=== PATIENT | male | born 2000 | race American Indian/Alaskan Native ===

== ENCOUNTER 2021-03-28 09:40 | Emergency (ER) | payer OTHER ==
[2021-03-28] MEDS ORDERED: Ondansetron 4 MG/2 ML SDV IVPUSH ONE (10:08)
[2021-03-28] MEDS ORDERED: Sodium Chloride 0.9% 10 ML Syringe FLUSH PRN (10:08)
[2021-03-28] MEDS ORDERED: Sodium Chloride 0.9% 1,000 ML IV SCH (10:15)
== END 2021-03-28 12:01 | disposition home or self-care (01) ==
LOC: JD.ED 09:40
DX: U07.1 COVID-19 (principal); R11.2 Nausea with vomiting, unspecified
CPT/HCPCS: 36415; 80053; 83690; 85025; 96374; 99284; J2405; J7030; 99283

== ENCOUNTER 2024-01-10 22:07 | Emergency (ER) | payer OTHER ==
[2024-01-10] MEDS ORDERED: Sodium Chloride 0.9% 10 ML Syringe FLUSH PRN (22:29)
[2024-01-10 22:49] LABS: BASOPHILS ABSOLUTE AUTO 0.1 K/mm3 (0.0-0.2); BASOPHILS PERCENT AUTO 0.5 % (0.0-1.0); EOSINOPHILS ABSOLUTE AUTO 0.4 K/mm3 (0.0-0.4); EOSINOPHILS PERCENT AUTO 2.7 % (0.0-6.0); HEMATOCRIT 47.6 % (42.0-52.0); HEMOGLOBIN 15.9 gm/dl (14.0-18.0); IMMATURE GRAN ABSOLUTE AUTO 0.06 K/mm3 (0.00-0.05); IMMATURE GRAN PERCENT AUTO 0.4 % (0.0-0.4); LYMPHOCYTES ABSOLUTE AUTO 3.2 K/mm3 (1.0-4.8); LYMPHOCYTES PERCENT AUTO 22.4 % (24.0-44.0); MEAN CORPUSCULAR HEMOGLOBIN 27.9 pg (28.0-32.0); MEAN CORPUSCULAR HGB CONC 33.4 g/dl (32.0-36.0); MEAN CORPUSCULAR VOLUME 83.7 fl (83.0-99.0); MEAN PLATELET VOLUME 11.3 fl (9.4-12.4); MONOCYTES ABSOLUTE AUTO 0.6 K/mm3 (0.0-0.8); MONOCYTES PERCENT AUTO 4.5 % (0.0-8.0); NEUTROPHILS ABSOLUTE AUTO 9.9 K/mm3 (1.8-7.7); NEUTROPHILS PERCENT AUTO 69.5 % (41.0-71.0); PLATELET COUNT,PLT 309 K/mm3 (150-400); RED BLOOD CELL COUNT 5.69 M/mm3 (4.52-5.90)
[2024-01-10 22:52] LABS: A/G RATIO 0.9 (1-2); BILIRUBIN TOTAL 0.5 mg/dL (0.2-1.0); CALCIUM 9.5 mg/dL (8.5-10.1); EST CRCL DRUG DOSING (CG) 128.73 mL/min; PROTEIN TOTAL,TP 8.3 g/dl (6.4-8.2)
[2024-01-10 22:54] LABS: LACTIC ACID 1.1 mmol/L (0.4-2.0)
[2024-01-10] MEDS: Iopamidol 612 MG/ML 100 ML Bottle IVPUSH ONE (23:13)
[2024-01-10] MEDS: Ketorolac 30 MG/ML SDV IVPUSH ONE (23:52)
== END 2024-01-11 00:02 | disposition home or self-care (01) ==
LOC: JD.ED 22:07
DX: R10.11 Right upper quadrant pain (principal)
CPT/HCPCS: 36415; 74177; 80053; 83605; 83690; 83735; 85025; 96374; 99285; J1885; Q9967

== ENCOUNTER 2024-01-13 10:24 | Emergency (ER) | payer OTHER ==
[2024-01-13 11:12] LABS: APPEARANCE,URINE CLEAR (Clear); BILIRUBIN,URINE NEGATIVE (Negative); COLOR,URINE YELLOW (Yellow); GLUCOSE,URINE NEGATIVE (Negative); KETONES,URINE NEGATIVE (Negative); LEUKOCYTE ESTERASE,URINE NEGATIVE (Negative); NITRITE,URINE NEGATIVE (Negative); OCCULT BLOOD,URINE NEGATIVE (Negative); PH,URINE 6.5 (5.0-8.0); PROTEIN,URINE 2+ (Negative); UROBILINOGEN,URINE 0.2 (0.2-1.0)
[2024-01-13] MEDS: Ketorolac 15 MG/ML SDV IVPUSH ONE (11:22)
[2024-01-13] MEDS: Sodium Chloride 0.9% 10 ML Syringe FLUSH PRN (11:24)
[2024-01-13 11:42] LABS: BACTERIA,URINE FEW /hpf (FEW); EPITHELIAL CELLS,URINE 0-5 /hpf (0-5); MUCUS,URINE MANY /hpf (FEW); RBC,URINE 0-5 /hpf (0-5); WBC,URINE 0-5 /hpf (0-5)
[2024-01-13 11:54] LABS: BASOPHILS ABSOLUTE AUTO 0.1 K/mm3 (0.0-0.2); BASOPHILS PERCENT AUTO 0.4 % (0.0-1.0); EOSINOPHILS ABSOLUTE AUTO 0.1 K/mm3 (0.0-0.4); EOSINOPHILS PERCENT AUTO 1.1 % (0.0-6.0); HEMATOCRIT 43.9 % (42.0-52.0); HEMOGLOBIN 14.8 gm/dl (14.0-18.0); IMMATURE GRAN ABSOLUTE AUTO 0.05 K/mm3 (0.00-0.05); IMMATURE GRAN PERCENT AUTO 0.4 % (0.0-0.4); LYMPHOCYTES ABSOLUTE AUTO 1.5 K/mm3 (1.0-4.8); LYMPHOCYTES PERCENT AUTO 11.8 % (24.0-44.0); MEAN CORPUSCULAR HEMOGLOBIN 28.5 pg (28.0-32.0); MEAN CORPUSCULAR HGB CONC 33.7 g/dl (32.0-36.0); MEAN CORPUSCULAR VOLUME 84.4 fl (83.0-99.0); MEAN PLATELET VOLUME 10.8 fl (9.4-12.4); MONOCYTES ABSOLUTE AUTO 0.5 K/mm3 (0.0-0.8); MONOCYTES PERCENT AUTO 3.8 % (0.0-8.0); NEUTROPHILS ABSOLUTE AUTO 10.2 K/mm3 (1.8-7.7); NEUTROPHILS PERCENT AUTO 82.5 % (41.0-71.0); PLATELET COUNT,PLT 250 K/mm3 (150-400); WHITE BLOOD CELL COUNT,WBC 12.41 K/mm3 (3.9-11.3)
[2024-01-13 12:29] LABS: ALBUMIN 3.8 g/dl (3.4-5.0); BILIRUBIN TOTAL 0.7 mg/dL (0.2-1.0); BUN/CREATININE RATIO 10.8 (14-18); CALCIUM 9.1 mg/dL (8.5-10.1); CREATININE 1.2 mg/dL (0.7-1.3); EST CRCL DRUG DOSING (CG) 110.36 mL/min; PROTEIN TOTAL,TP 7.7 g/dl (6.4-8.2)
[2024-01-13] MEDS: Aspirin 81 MG Tab.Chew PO ONE (15:42)
[2024-01-13] MEDS: Nitroglycerin 0.4 MG Tab.SL SL PRN (15:44)
[2024-01-13 17:55] LABS: BARBITURATE SCREEN,URINE NEGATIVE (CUTOFF=200); BENZODIAZEPINES SCREEN,URINE NEGATIVE (CUTOFF=150); BUPRENORPHINE SCREEN,URINE NEGATIVE (CUTOFF=10); METHADONE SCREEN, URINE NEGATIVE (CUT0FF=200); METHAMPHETAMINES SCREEN, URINE NEGATIVE (CUTOFF=500); OXYCODONE SCREEN,URINE NEGATIVE (CUT0FF=100); THC SCREEN,URINE 20 NG/ML NEGATIVE (CUTOFF=50)
[2024-01-13 17:57] LABS: AMPHETAMINES SCREEN, URINE NEGATIVE (CUTOFF=500)
== END 2024-01-13 16:13 ==
LOC: JD.ED 10:24
DX: I21.4 Non-ST elevation (NSTEMI) myocardial infarction (principal); R79.89 Other specified abnormal findings of blood chemistry; R10.11 Right upper quadrant pain; Z86.16 Personal history of COVID-19
CPT/HCPCS: 36415; 71045; 76705; 80053; 80306; 81001; 83690; 84484; 85025; 85379; 93005; 96374; 99285; A9270; J1885; J3490